=== PATIENT | female | born 1950 | race Caucasian/White ===

== ENCOUNTER → 2024-01-06 09:52 | Outpatient (REF) | payer MEDICARE, OTHER, SELFPAY ==
[2024-01-06 11:32] LABS: HDL Cholesterol 72 mg/dl; LDL Cholesterol, Calculated 80 mg/dl; Total Cholesterol 169 mg/dl (50-199); Triglyceride 88 mg/dl (10-149); Very Low Density Lipoprotein 17 mg/dl (0-30)
== END ==
LOC: OLABN 09:52
PROVIDERS: ATTENDING PHYSICIAN Student in an Organized Health Care Education/Training Program
DX: E78.5 Hyperlipidemia, unspecified (principal)
CPT/HCPCS: 36415; 80061

== ENCOUNTER → 2024-03-06 11:39 | Outpatient (REF) | payer MEDICARE, OTHER, SELFPAY ==
[2024-03-06 12:15] LABS: Urine Albumin Negative (Neg - Trace); Urine Bilirubin Negative (Negative); Urine Character Clear (Clear); Urine Color Yellow; Urine Glucose Negative (Negative); Urine Ketone Negative (Negative); Urine Leukocyte Negative (Negative); Urine Nitrite Negative (Negative); Urine Occult Blood Negative (Negative); Urine Specific Gravity 1.015 (<1.030); Urine Urobilinogen Negative (Neg - 1+)
== END ==
LOC: OLABN 11:39
PROVIDERS: ATTENDING PHYSICIAN Student in an Organized Health Care Education/Training Program
DX: R35.0 Frequency of micturition (principal)
CPT/HCPCS: 81003; 87086

== ENCOUNTER → 2024-03-09 04:40 | Outpatient (REF) | payer MEDICARE, OTHER, SELFPAY ==
[2024-03-09 13:17] LABS: Urine Albumin Negative (Neg - Trace); Urine Bilirubin Negative (Negative); Urine Character Clear (Clear); Urine Color Yellow; Urine Glucose Negative (Negative); Urine Ketone Negative (Negative); Urine Leukocyte Negative (Negative); Urine Nitrite Negative (Negative); Urine Occult Blood Negative (Negative); Urine Specific Gravity 1.015 (<1.030); Urine Urobilinogen Negative (Neg - 1+)
== END ==
LOC: OLABN 04:40
PROVIDERS: ATTENDING PHYSICIAN Student in an Organized Health Care Education/Training Program
DX: R35.0 Frequency of micturition (principal)
CPT/HCPCS: 81003; 87086

== ENCOUNTER → 2024-03-16 11:27 | Outpatient (REF) | payer MEDICARE, OTHER, SELFPAY ==
[2024-03-16 11:41] LABS: Ammonia 13 umol/L (9-30)
[2024-03-16 11:47] LABS: % Basophils 0.2 % (0-2); % Eosinophils 1.7 % (0-6); % Immature Granulocytes 0.2 % (0-0.5); % Lymphocytes 29.2 % (20.5-51.1); % Monocytes 10.4 % (1.7-9.3); % Neutrophils 58.3 % (42.2-75.2); Absolute Eosinophils 0.1 10^3/uL (0-0.7); Absolute Lymphocytes 1.4 10^3/uL (1.2-3.4); Absolute Monocytes 0.5 10^3/uL (0.1-0.6); Absolute Neutrophils 2.7 10^3/uL (1.4-6.5); Hematocrit 34.2 % (37.0-47.0); Hemoglobin 11.7 g/dL (12.0-16.0); Mean Corp Hgb Conc. 34.2 g/dL (33.0-37.0); Mean Corpuscular Hgb 34.9 pg (27.0-31.0); Mean Corpuscular Volume 102.1 fL (81.0-99.0); Mean Platelet Volume 10.4 fL (7.4-10.4); Nucleated Red Blood Cells % 0 %; Platelet Count 242 10^3/uL (130-400); Red Blood Cell Count 3.35 10^6/uL (4.20-5.40); Red Cell Dist. Width 13.2 % (11.5-14.5); White Blood Cell Count 4.6 10^3/uL (4.8-10.8)
[2024-03-16 11:52] LABS: ALT (SGPT) 15 U/L (0-35); AST (SGOT) 18 U/L (14-36); Albumin 3.6 g/dl (3.5-5.0); Alkaline Phosphatase 127 U/L (38-126); Blood Urea Nitrogen 20 mg/dl (7-17); Calcium 9.1 mg/dl (8.4-10.2); Carbon Dioxide 22 mmol/L (22-30); Chloride 108 mmol/L (98-107); Glucose 87 mg/dl (70-99); HDL Cholesterol 71 mg/dl; LDL Cholesterol, Calculated 82 mg/dl; Potassium 3.5 mmol/L (3.5-5.1); Sodium 141 mmol/L (135-145); Total Bilirubin 0.3 mg/dl (0.2-1.3); Total Cholesterol 169 mg/dl (50-199); Total Protein 6.1 g/dl (6.3-8.2); Triglyceride 84 mg/dl (10-149); Very Low Density Lipoprotein 16 mg/dl (0-30); eGFR > 60.00
[2024-03-16 12:07] LABS: Free T4 0.95 ng/dl (0.78-2.19)
[2024-03-16 12:44] LABS: Glycohemoglobin (HgbA1c) 5.6 % (4.0-5.6)
[2024-03-16 13:25] LABS: Tegretol (Carbamazepine) < 3.0 ug/ml (4-12)
[2024-03-17 13:07] LABS: Lamotrigine (Lamictal) 8.3 ug/mL (3.0-15.0)
== END ==
LOC: OLABN 11:27
PROVIDERS: ATTENDING PHYSICIAN Student in an Organized Health Care Education/Training Program
DX: I10 Essential (primary) hypertension (principal); G40.909 Epilepsy, unspecified, not intractable, without status epilepticus; E78.5 Hyperlipidemia, unspecified; Z79.899 Other long term (current) drug therapy
CPT/HCPCS: 36415; 80053; 80061; 80156; 80175; 82140; 83036; 84439; 84443; 85025

== ENCOUNTER → 2024-09-14 08:48 | Outpatient (REF) | payer MEDICARE, OTHER, SELFPAY ==
[2024-09-14 12:25] LABS: % Basophils 0.2 % (0-2); % Eosinophils 1.9 % (0-6); % Immature Granulocytes 0.2 % (0-0.5); % Lymphocytes 30.3 % (20.5-51.1); % Monocytes 9.3 % (1.7-9.3); % Neutrophils 58.1 % (42.2-75.2); Absolute Eosinophils 0.1 10^3/uL (0-0.7); Absolute Lymphocytes 1.4 10^3/uL (1.2-3.4); Absolute Monocytes 0.4 10^3/uL (0.1-0.6); Absolute Neutrophils 2.7 10^3/uL (1.4-6.5); Hematocrit 35.5 % (37.0-47.0); Hemoglobin 11.4 g/dL (12.0-16.0); Mean Corp Hgb Conc. 32.1 g/dL (33.0-37.0); Mean Corpuscular Volume 102.9 fL (81.0-99.0); Mean Platelet Volume 10.2 fL (7.4-10.4); Nucleated Red Blood Cells % 0 %; Platelet Count 244 10^3/uL (130-400); Red Blood Cell Count 3.45 10^6/uL (4.20-5.40); Red Cell Dist. Width 12.6 % (11.5-14.5); White Blood Cell Count 4.6 10^3/uL (4.8-10.8)
[2024-09-14 12:42] LABS: Tegretol (Carbamazepine) < 3.0 ug/ml (4-12)
[2024-09-14 12:44] LABS: ALT (SGPT) 15 U/L (0-35); AST (SGOT) 15 U/L (14-36); Albumin 3.7 g/dl (3.5-5.0); Alkaline Phosphatase 115 U/L (38-126); Blood Urea Nitrogen 25 mg/dl (7-17); Calcium 8.8 mg/dl (8.4-10.2); Carbon Dioxide 25 mmol/L (22-30); Chloride 107 mmol/L (98-107); Glucose 97 mg/dl (70-99); HDL Cholesterol 64 mg/dl; LDL Cholesterol, Calculated 101 mg/dl; Potassium 3.4 mmol/L (3.5-5.1); Sodium 143 mmol/L (135-145); Total Bilirubin < 0.1 mg/dl (0.2-1.3); Total Cholesterol 188 mg/dl (50-199); Triglyceride 117 mg/dl (10-149); Very Low Density Lipoprotein 23 mg/dl (0-30); eGFR > 60.00
[2024-09-14 12:48] LABS: Free T4 0.83 ng/dl (0.78-2.19)
[2024-09-14 13:15] LABS: TSH 1.37 uIU/ml (0.47-4.68)
[2024-09-14 14:36] LABS: Glycohemoglobin (HgbA1c) 5.4 % (4.0-5.6)
[2024-09-17 05:28] LABS: Lamotrigine (Lamictal) 7.4 ug/mL (3.0-15.0)
== END ==
LOC: OLABN 08:48
PROVIDERS: ATTENDING PHYSICIAN Student in an Organized Health Care Education/Training Program
DX: E78.5 Hyperlipidemia, unspecified (principal); G40.909 Epilepsy, unspecified, not intractable, without status epilepticus; I10 Essential (primary) hypertension; Z79.899 Other long term (current) drug therapy
CPT/HCPCS: 36415; 80053; 80061; 80156; 80175; 83036; 84439; 84443; 85025

== ENCOUNTER → 2024-09-15 09:21 | Outpatient (REF) | payer MEDICARE, OTHER, SELFPAY ==
[2024-09-15 10:37] LABS: Ammonia 9 umol/L (9-30)
== END ==
LOC: OLABN 09:21
PROVIDERS: ATTENDING PHYSICIAN Student in an Organized Health Care Education/Training Program
DX: G40.909 Epilepsy, unspecified, not intractable, without status epilepticus (principal); E78.5 Hyperlipidemia, unspecified; I10 Essential (primary) hypertension
CPT/HCPCS: 36415; 82140

== ENCOUNTER → 2024-09-29 11:23 | Outpatient (REF) | payer MEDICARE, OTHER, SELFPAY ==
[2024-09-29 13:06] LABS: Tegretol (Carbamazepine) < 3.0 ug/ml (4-12)
== END ==
LOC: OLABN 11:23
PROVIDERS: ATTENDING PHYSICIAN Student in an Organized Health Care Education/Training Program
DX: G40.909 Epilepsy, unspecified, not intractable, without status epilepticus (principal)
CPT/HCPCS: 36415; 80156

== ENCOUNTER → 2024-10-14 09:35 | Outpatient (REF) | payer MEDICARE, OTHER, SELFPAY ==
[2024-10-14 15:37] LABS: Tegretol (Carbamazepine) < 3.0 ug/ml (4-12)
== END ==
LOC: OLABN 09:35
PROVIDERS: ATTENDING PHYSICIAN Student in an Organized Health Care Education/Training Program
DX: G40.909 Epilepsy, unspecified, not intractable, without status epilepticus (principal)
CPT/HCPCS: 36415; 80156

== ENCOUNTER → 2024-11-11 09:51 | Outpatient (REF) | payer MEDICARE, OTHER, SELFPAY ==
[2024-11-11 12:00] LABS: Urine Albumin Negative (Neg - Trace); Urine Bilirubin Negative (Negative); Urine Character Clear (Clear); Urine Color Yellow; Urine Glucose Negative (Negative); Urine Ketone Negative (Negative); Urine Leukocyte Negative (Negative); Urine Nitrite Negative (Negative); Urine Occult Blood Negative (Negative); Urine Specific Gravity 1.015 (<1.030); Urine Urobilinogen Negative (Neg - 1+)
[2024-11-11 12:19] LABS: Hemoglobin 11.4 g/dL (12.0-16.0); Mean Corp Hgb Conc. 32.6 g/dL (33.0-37.0); Mean Corpuscular Hgb 34.4 pg (27.0-31.0); Mean Corpuscular Volume 105.7 fL (81.0-99.0); Platelet Count 232 10^3/uL (130-400); Red Blood Cell Count 3.31 10^6/uL (4.20-5.40); Red Cell Dist. Width 13.4 % (11.5-14.5); White Blood Cell Count 5.4 10^3/uL (4.8-10.8)
[2024-11-11 12:29] LABS: ALT (SGPT) 12 U/L (0-35); AST (SGOT) 15 U/L (14-36); Albumin 3.5 g/dl (3.5-5.0); Alkaline Phosphatase 124 U/L (38-126); Blood Urea Nitrogen 14 mg/dl (7-17); Calcium 8.7 mg/dl (8.4-10.2); Carbon Dioxide 27 mmol/L (22-30); Glucose 92 mg/dl (70-99); Potassium 3.4 mmol/L (3.5-5.1); Sodium 142 mmol/L (135-145); Total Bilirubin 0.2 mg/dl (0.2-1.3); Total Protein 5.9 g/dl (6.3-8.2); eGFR > 60.00
[2024-11-11 12:50] LABS: Chloride 107 mmol/L (98-107)
== END ==
LOC: OLABN 09:51
PROVIDERS: ATTENDING PHYSICIAN Student in an Organized Health Care Education/Training Program
DX: R35.81 Nocturnal polyuria (principal); G40.909 Epilepsy, unspecified, not intractable, without status epilepticus
CPT/HCPCS: 36415; 80053; 81003; 85027; 87086

== ENCOUNTER → 2024-11-16 09:21 | Outpatient (REF) | payer MEDICARE, OTHER, SELFPAY ==
[2024-11-16 10:24] LABS: Urine Albumin Negative (Neg - Trace); Urine Bilirubin Negative (Negative); Urine Character Clear (Clear); Urine Color Yellow; Urine Glucose Negative (Negative); Urine Ketone Negative (Negative); Urine Leukocyte Negative (Negative); Urine Nitrite Negative (Negative); Urine Occult Blood Negative (Negative); Urine Urobilinogen Negative (Neg - 1+)
== END ==
LOC: OLABN 09:21
PROVIDERS: ATTENDING PHYSICIAN Student in an Organized Health Care Education/Training Program
DX: R35.81 Nocturnal polyuria (principal)
CPT/HCPCS: 36415; 81003; 87086

== ENCOUNTER → 2025-03-15 09:43 | Outpatient (REF) | payer MEDICARE, OTHER, SELFPAY ==
[2025-03-15 10:44] LABS: % Basophils 0.4 % (0-2); % Immature Granulocytes 0.2 % (0-0.5); % Lymphocytes 28.6 % (20.5-51.1); % Monocytes 10.1 % (1.7-9.3); % Neutrophils 58.7 % (42.2-75.2); Absolute Eosinophils 0.1 10^3/uL (0-0.7); Absolute Lymphocytes 1.4 10^3/uL (1.2-3.4); Absolute Monocytes 0.5 10^3/uL (0.1-0.6); Absolute Neutrophils 2.9 10^3/uL (1.4-6.5); Ammonia 14 umol/L (9-30); Hematocrit 33.9 % (37.0-47.0); Hemoglobin 11.1 g/dL (12.0-16.0); Mean Corp Hgb Conc. 32.7 g/dL (33.0-37.0); Mean Corpuscular Hgb 34.2 pg (27.0-31.0); Mean Corpuscular Volume 104.3 fL (81.0-99.0); Mean Platelet Volume 10.1 fL (7.4-10.4); Nucleated Red Blood Cells % 0 %; Platelet Count 248 10^3/uL (130-400); Red Blood Cell Count 3.25 10^6/uL (4.20-5.40); Red Cell Dist. Width 12.7 % (11.5-14.5); White Blood Cell Count 4.9 10^3/uL (4.8-10.8)
[2025-03-15 10:52] LABS: Tegretol (Carbamazepine) < 3.0 ug/ml (4-12)
[2025-03-15 10:53] LABS: ALT (SGPT) 11 U/L (0-35); AST (SGOT) 13 U/L (14-36); Albumin 3.3 g/dl (3.5-5.0); Alkaline Phosphatase 126 U/L (38-126); Blood Urea Nitrogen 18 mg/dl (7-17); Calcium 8.9 mg/dl (8.4-10.2); Carbon Dioxide 27 mmol/L (22-30); Chloride 110 mmol/L (98-107); Glucose 93 mg/dl (70-99); HDL Cholesterol 58 mg/dl; LDL Cholesterol, Calculated 94 mg/dl; Potassium 3.5 mmol/L (3.5-5.1); Sodium 143 mmol/L (135-145); Total Bilirubin 0.3 mg/dl (0.2-1.3); Total Cholesterol 173 mg/dl (50-199); Total Protein 5.8 g/dl (6.3-8.2); Triglyceride 109 mg/dl (10-149); Very Low Density Lipoprotein 21 mg/dl (0-30); eGFR > 60.00
[2025-03-15 11:18] LABS: TSH 1.27 uIU/ml (0.47-4.68)
[2025-03-15 13:24] LABS: Glycohemoglobin (HgbA1c) 5.4 % (4.0-5.6)
[2025-03-16 21:40] LABS: Lamotrigine (Lamictal) 8.2 ug/mL (3.0-15.0)
== END ==
LOC: OLABN 09:43
PROVIDERS: ATTENDING PHYSICIAN Student in an Organized Health Care Education/Training Program
DX: I10 Essential (primary) hypertension (principal); G40.909 Epilepsy, unspecified, not intractable, without status epilepticus; E78.5 Hyperlipidemia, unspecified; R73.09 Other abnormal glucose
CPT/HCPCS: 36415; 80053; 80061; 80156; 80175; 82140; 83036; 84439; 84443; 85025

== ENCOUNTER → 2025-05-04 08:57 | Outpatient (REF) | payer MEDICARE, OTHER, SELFPAY ==
[2025-05-04 10:22] LABS: Hematocrit 33.9 % (37.0-47.0); Hemoglobin 11.3 g/dL (12.0-16.0); Mean Corp Hgb Conc. 33.3 g/dL (33.0-37.0); Mean Corpuscular Volume 102.4 fL (81.0-99.0); Nucleated Red Blood Cells % 0 %; Platelet Count 234 10^3/uL (130-400); Red Cell Dist. Width 12.8 % (11.5-14.5)
[2025-05-04 10:36] LABS: ALT (SGPT) 11 U/L (0-35); AST (SGOT) 13 U/L (14-36); Albumin 3.7 g/dl (3.5-5.0); Alkaline Phosphatase 124 U/L (38-126); Blood Urea Nitrogen 19 mg/dl (7-17); Calcium 8.5 mg/dl (8.4-10.2); Carbon Dioxide 24 mmol/L (22-30); Chloride 113 mmol/L (98-107); Glucose 92 mg/dl (70-99); Potassium 3.5 mmol/L (3.5-5.1); Sodium 143 mmol/L (135-145); Total Protein 6.3 g/dl (6.3-8.2); eGFR > 60.00
== END ==
LOC: OLABN 08:57
PROVIDERS: ATTENDING PHYSICIAN Student in an Organized Health Care Education/Training Program
DX: G40.909 Epilepsy, unspecified, not intractable, without status epilepticus (principal)
CPT/HCPCS: 36415; 80053; 80156; 80175; 85025

== ENCOUNTER 2025-06-03 10:53 | Emergency (ER) | payer MEDICARE, OTHER, SELFPAY ==
[2025-06-03 10:58] VITALS: BP 137/64
[2025-06-03 11:57] VITALS: BMI 42.3
--- NOTE | 2025-06-03 12:15 | EDRN ---
Received patient on stretcher. Patient stated 'I don't want to answer your questions. I am not going to keep telling you why I am here. You're torturing me like the aides do at [facility]. ' Explained to patient that she unfortunately is going
to need to answer questions and it's not meant to torture her. Patient stated 'The aides at [facility] make me get to the bathroom on my own. They tell me that I can do it myself. I get myself to the chair the roll myself to the bathroom and squeeze
myself in. I then hold on and turn. Today I think it was my right foot turned like a pretzel and I fell like I have been doing.' Patient not specific where her pain is and gets angry when asked any questions.
--- NOTE | 2025-06-03 12:45 | ED.GENMED ---
History of Present Illness
General
Chief Complaint: Fall
Source: patient and records
Time Seen by Provider: 06/03/25 12:29
History of Present Illness
History of Present Illness:
This patient is a 75-year-old female who states that she suffered a fall when she was getting up off the toilet. She states that she did not want to wait for her aids because they take too long. She suffered a fall, resulting in 'twisting' of her
right leg, and she states she fell on her back and that her head was on the floor although she denies a specific head strike. She is not on anticoagulation medication. This happened after breakfast but before lunchtime, otherwise she is not more
specific regarding time. It did happen today. Since being here, she states she feels better. She was reporting a posterior occipital headache which is improved. She also notes vague mid to lower back pain and right knee pain. She notes she only
has pain when she raises her right leg up. She denies neck pain, numbness, tingling, visual changes, nausea, vomiting, chest pain, palpitations, shortness of breath, abdominal pain, or other complaints.
Past History
Past History
ED Past Medical History: Hypercholesterolemia, Seizures, Hypothyroidism, Psychiatric (Depression, anxiety) and Other (Dementia, lymphedema)
ED Past Surgical History: Orthopedic, Tonsilectomy and Other (brain, vagal nerve stimulator,)
Social History
Tobacco: Non-smoker
Alcohol: None
Drug: None
Living: halfway
Phy Exam
Physical Exam
Physical Exam:
GENERAL: Alert , in no apparent distress
EYE: pupils equal and reactive, EOMI, no nystagmus, no photophobia
NECK: Supple, no significant adenopathy, no midline tenderness.
ENT: o/p clr, mmm, no signs of head or facial injury noted on exam, no osuna, no raccoon.
CARDIAC: Regular rate and rhythm .
LUNGS: Clear breath sounds bilaterally, no acute respiratory distress, no wheezes/rales/rhonchi
ABDOMEN: Soft, without focal tenderness, no r/g, no cvat
NEUROLOGICAL: Alert and oriented, no focal neuro deficits, moves all extremities equally, speech clear, no facial droop, sensory intact to light touch
SKIN: Warm and dry, skin intact.
MUSCULOSKELETAL: No edema, well perfused. There is mild/nonspec ttp noted at lower T and L S spine without bruising/swelling. Nonspec ttp of R knee without deformity/bruising. ROM of R knee/hip preserved. Pulses nl.
PSYCH: Normal and appropriate interaction.
Course
Orders/Labs/Results
Orders:
Orders
06/03/25 12:45
Electrocardiogram (*1) Urgent
Reason for Study: Other
Other Reason for Exam: fall
CT Head W/o Iv Contrast Urgent
Comment:
Reason For Exam: fall
EKG- Treatment ONCE
CR Lumbar Spine 2 Or 3 Views Urgent
Reason For Exam: fall
CR Thoracic Spine 3 Views Urgent
Reason For Exam: fall
Knee, Right 4 or More Views [CR Knee- Right 4 Or More View*] Urgent
Comment:
Reason For Exam: fall
06/03/25 12:51
Ketorolac [Toradol] 15 mg IM NOW STA
Vital Signs
Initial and Last Documented VS:
Initial Vital Signs
Temp Pulse Resp BP Pulse Ox
98.0 F 74 16 137/64 98
06/03/25 10:58 06/03/25 10:58 06/03/25 10:58 06/03/25 10:58 06/03/25 10:58
Last Documented Vital Signs
Temp Pulse Resp BP Pulse Ox
98.0 F 74 16 137/64 98
06/03/25 10:58 06/03/25 10:58 06/03/25 10:58 06/03/25 10:58 06/03/25 12:45
*Pulse Oximetry
SaO2: 98
Oxygen Mode of Delivery: Room air
Update Note
Update Note:
Patient presents to the Emergency Department with ___fall
Number and Complexity of Problems Addressed at the Encounter
� Chronic conditions affecting care:
� Acute Exacerbation and/or Progression of Chronic Illness:
� Differential Diagnosis includes: but Not limited to intracranial bleed, compression fx, knee fracture, menisceal injury, etc etc
Amount and/or Complexity of Data to be Reviewed and Analyzed
� I performed an independent evaluation of and my interpretation is:
EKG: Read by me, normal sinus rhythm, normal rate, no acute ischemia
CT: Read by radiology NAD
Xrays: Read by radiology, no acute fracture or disease, chronic findings noted
Laboratory Studies:
Other:
� Review of other/old records reveals:
� Clinical information was obtained by an independent historian:
� Prescriptions/Medications Considered but not given:
� Further testing considered but not performed:
Risk of Complications and/or Morbidity or Mortality of Patient Management
� Social determinants of health affecting care:
� Discussion with other providers (PCP, Hospitalists, Consultants, etc):
� Escalation of care including admission/observation vs risk of discharge considered: 2:52 PM patient resting comfortably informed her of her testing results, she is comfortable with plan to be referred back to [facility]
for continued care.
ED Attending Note
-
Portions of this chart may have been created with voice recognition software.� Occasional wrong word or��sound alike� substitutions may have occurred due to the inherent limitations of voice recognition software.
Discharge Plan
Departure
Patient Disposition: Correction/SNF
Date of Disposition: 06/03/25
Time of Disposition: 14:51
Patient with high blood pressure during this ER visit?: Yes
Condition: Good
Discharge Problem:
Fall
Instructions: BLOOD PRESSURE, Preventing falls in adults
Prescriptions:
No Action
acetaminophen 325 MG tablet
650 mg PO Q4HPRN PRN (Reason: mild pain/fever)
polyethylene glycol 3350 17 GRAMS powder in packet
17 grams PO DAILY
donepezil 10 MG tablet
10 mg PO DAILY
oxcarbazepine 300 MG tablet
600 mg PO BID
magnesium hydroxide 30 ML suspension
30 ml PO HSPRN PRN (Reason: constipation)
levothyroxine 50 MCG tablet
50 mcg PO DAILY
bisacodyl [OneLAX Bisacodyl] 10 MG suppository
10 mg MT DAILYPRN PRN (Reason: constipation)
calcium carbonate [Antacid (calcium carbonate)] 1 TABLET tablet,chewable
2 tab PO Q4HPRN PRN (Reason: dyspepsia)
aspirin 81 MG tablet,chewable
81 mg PO DAILY
topiramate 100 MG tablet
200 mg PO BID
lamotrigine 100 MG tablet
300 mg PO BID
escitalopram oxalate 20 MG tablet
20 mg PO DAILY
memantine 10 MG tablet
10 mg PO BID
benzocaine-menthol [Cepacol Sore Throat (red-men)] 1 EACH lozenge
2 ea PO Q4 PRN (Reason: sore throat)
furosemide 40 MG tablet
40 mg PO DAILY PRN (Reason: weight gain > 3 pound a day) Qty: 0 0RF
Referrals:
Spencer Escalante DO [Family Provider]
Activity Restrictions/Additional Instructions:
IF YOU DEVELOP INCREASING OR NEW PAIN, DIZZINESS, CHEST PAIN, SHORTNESS OF BREATH, NUMBNESS, OR OTHER WORRISOME SIGNS, PLEASE RETURN TO THE ER IMMEDIATELY!
Interventions
Interventions:
*Risk Screen - Suicide Last Done: 06/03/25 10:58
*General Assessment Last Done: 06/03/25 11:59
*Neglect/Abuse Screening Last Done: 06/03/25 10:58
*ED- Fall Risk Assessment Last Done: 06/03/25 11:59
*ED COVID-19 Vaccine History Last Done: 06/03/25 11:59
ED-Musculoskeletal Assessment Last Done: 06/03/25 11:57
ED- Neurological Assessment Last Done: 06/03/25 11:57
ED-Skin Assessment Last Done: 06/03/25 11:57
Discharge Date and Time
Print Language: SRI LANKAN
[2025-06-03] MEDS: TORADOL 15 MG IM (13:42)
[2025-06-03 14:00] VITALS: BP 112/68
--- NOTE | 2025-06-03 15:00 | EDRN ---
Report called to [facility] at [facility]. Patient to be picked up by Acute Care.
[2025-06-03 15:36] VITALS: BP 113/59
--- NOTE | 2025-06-03 15:36 | EDRN ---
Report given to Acute Care staff.
== END 2025-06-03 15:20 ==
LOC: EMR 10:53
PROVIDERS: EMERGENCY PHYSICIAN Emergency Medicine; FAMILY PHYSICIAN Family Medicine
DX: R51.9 Headache, unspecified (principal); M54.50 Low back pain, unspecified; M25.561 Pain in right knee; W18.11XA Fall from or off toilet without subsequent striking against object, initial encounter; E03.9 Hypothyroidism, unspecified; E78.00 Pure hypercholesterolemia, unspecified; F03.90 Unspecified dementia, unspecified severity, without behavioral disturbance, psychotic disturbance, mood disturbance, and anxiety
CPT/HCPCS: 96372; 99284; 70450; 72072; 72100; 73564; 93005

== ENCOUNTER → 2025-09-13 11:27 | Outpatient (REF) | payer MEDICARE, OTHER, SELFPAY ==
[2025-09-13 12:18] LABS: Ammonia < 9 umol/L (9-30)
[2025-09-13 12:19] LABS: Hematocrit 36.0 % (37.0-47.0); Hemoglobin 11.3 g/dL (12.0-16.0); Mean Corp Hgb Conc. 31.4 g/dL (33.0-37.0); Mean Corpuscular Volume 106.2 fL (81.0-99.0); Nucleated Red Blood Cells % 0 %; Platelet Count 250 10^3/uL (130-400); Red Cell Dist. Width 12.9 % (11.5-14.5)
[2025-09-13 12:41] LABS: ALT (SGPT) 12 U/L (0-35); AST (SGOT) 13 U/L (14-36); Albumin 3.6 g/dl (3.5-5.0); Alkaline Phosphatase 111 U/L (38-126); Blood Urea Nitrogen 18 mg/dl (7-17); Calcium 8.8 mg/dl (8.4-10.2); Carbon Dioxide 25 mmol/L (22-30); Chloride 109 mmol/L (98-107); Glucose 91 mg/dl (70-99); HDL Cholesterol 61 mg/dl; LDL Cholesterol, Calculated 104 mg/dl; Potassium 3.3 mmol/L (3.5-5.1); Sodium 141 mmol/L (135-145); Total Protein 6.0 g/dl (6.3-8.2); Very Low Density Lipoprotein 21 mg/dl (0-30); eGFR > 60.00
[2025-09-13 13:06] LABS: TSH 1.57 uIU/ml (0.47-4.68)
[2025-09-13 13:14] LABS: Glycohemoglobin (HgbA1c) 5.4 % (4.0-5.9)
== END ==
LOC: OLABN 11:27
PROVIDERS: ATTENDING PHYSICIAN Student in an Organized Health Care Education/Training Program
DX: I10 Essential (primary) hypertension (principal); G40.909 Epilepsy, unspecified, not intractable, without status epilepticus; E78.5 Hyperlipidemia, unspecified; Z79.899 Other long term (current) drug therapy
CPT/HCPCS: 36415; 80053; 80061; 80156; 80175; 82140; 83036; 84439; 84443; 85025